=== PATIENT | female | born 1965 | race Caucasian/White ===

== ENCOUNTER 2016-08-02 20:01 | Emergency (ER) | payer OTHER ==
[2016-08-02 20:13] VITALS: BP 133/72; PULSE 89; RESP 18; TEMP 98.4
--- NOTE | 2016-08-02 21:56 | CT ---
EXAMINATION TYPE: CT brain [facility] DATE OF EXAM: 08/02/2016 9:46 PM COMPARISON: NONE HISTORY: Patient complains of headache, nausea, and dizziness post fall with blow to posterior head. Patient denies neck pain at time of exam. CT DLP: 1475.4 mGycm Automated exposure control for dose reduction was used. TECHNIQUE: CT scan of the head and cervical spine are performed without contrast. FINDINGS: Ventricles and sulci appear normal. There is no mass effect nor midline shift. There is n o sign of intracranial hemorrhage. The calvarium is intact. There is straightening of the cervical spine. There is degenerative disc space narrowing at C4-5 C5-6 with spurring of the endplates. Posterior elements are intact. Skull base is intact. I see no fractu re. IMPRESSION: Negative CT scan of the brain. Spondylotic changes in the cervical spine with straightening. No fracture.
[2016-08-02] MEDS ORDERED: KETOROLAC 30 MG/ML 1 ML VIAL IVP STA (22:39)
[2016-08-02] MEDS ORDERED: DIAZEPAM 5 MG/ML 2 ML SYRINGE IVP STA (22:39)
--- NOTE | 2016-08-02 23:11 | ED ---
General Adult HPI - General Chief complaint: Head Injury Stated complaint: Fall. Head Injury Source: patient Mode of arrival: wheelchair Limitations: no limitations - History of Present Illness Initial comments: 51-year-old female presented for evaluation of headache and dizziness with posterior head laceration following fall from standing yesterday. She says that she was walking into her gradually going up a couple steps and lost her balance and fell backwards hitting the back of her head on hard concrete. She is unsure if there was loss of consciousness but denies being on any blood thinners. She was able to get up on her own and continue ambulating going about a day. This morning she woke up and had dizziness whenever turning her head abruptly. She denies any associated nausea or vomiting or change in vision. The laceration to the back of her head continued to lose although bleeding was controlled. - Related Data Home Medications Medication Instructions Recorded Confirmed Dextroamphetamine/Amphetamine 1 tab PO DAILY 08/02/16 08/02/16 [Adderall] Previous Rx's Medication Instructions Recorded Diazepam [Valium] 5 mg PO BID #6 tab 08/02/16 HYDROcodone/APAP 5-325MG [[place] 1 - 2 tab PO Q6HR PRN #14 tab 08/02/16 5-325] Ibuprofen [Motrin] 800 mg PO Q8HR PRN #20 tab 08/02/16 Sulfamethox-Tmp 800-160Mg [Bactrim 1 tab PO Q12HR #14 tab 08/02/16 DS 800-160 mg] Allergies Allergy/AdvReac Type Severity Reaction Status Date / Time diphenhydramine Allergy Anaphylaxis Verified 08/02/16 20:14 [From Benadryl] egg Allergy Rash/Hives Verified 08/02/16 20:14 Penicillins Allergy Rash/Hives Verified 08/02/16 20:14 prednisone Allergy Swelling Verified 08/02/16 20:14 Review of Systems ROS Statement: Those systems with pertinent positive or pertinent negative responses have been documented in the HPI. ROS Other: All systems not noted in ROS Statement are negative. Constitutional: Denies: fever, chills Eyes: Denies: eye pain, eye discharge ENT: Denies: ear pain, throat pain Respiratory: Denies: cough, dyspnea Cardiovascular: Denies: chest pain, palpitations Endocrine: Denies: fatigue, polydipsia, polyuria Gastrointestinal: Denies: abdominal pain, nausea, vomiting Genitourinary: Denies: urgency, dysuria Musculoskeletal: Denies: back pain, myalgia Skin: Reports: lesions (Scalp laceration to posterior skull). Denies: rash, change in color Neurological: Reports: headache, other (Dizziness). Denies: numbness, paresthesias, confusion, abnormal gait, vertigo Psychiatric: Denies: anxiety, depression, auditory hallucinations, visual hallucinations Hematological/Lymphatic: Denies: easy bleeding, easy bruising Past Medical History Past Medical History: No Reported History History of Any Multi-Drug Resistant Organisms: None Reported Past Surgical History: Tonsillectomy Past Psychological History: Depression Smoking Status: Never smoker Past Alcohol Use History: Occasional Past Drug Use History: None Reported General Exam Limitations: no limitations General appearance: alert, in no apparent distress Head exam: Present: normocephalic, other (3 cm laceration to the posterior scalp. Clot noted within the laceration which is open but is not actively bleeding.). Absent: atraumatic Eye exam: Present: normal appearance, PERRL, EOMI. Absent: scleral icterus, conjunctival injection, periorbital swelling ENT exam: Present: normal exam, mucous membranes moist Neck exam: Present: tenderness, full ROM. Absent: meningismus, lymphadenopathy Respiratory exam: Present: normal lung sounds bilaterally. Absent: respiratory distress, wheezes, rales, rhonchi, stridor Cardiovascular Exam: Present: regular rate, normal rhythm, normal heart sounds. Absent: systolic murmur, diastolic murmur, rubs, gallop, clicks GI/Abdominal exam: Present: soft, normal bowel sounds. Absent: distended, tenderness, guarding, rebound, rigid Rectal exam: Present: deferred Extremities exam: Present: normal inspection, full ROM, normal capillary refill. Absent: tenderness, pedal edema, joint swelling, calf tenderness Back exam: Present: normal inspection. Absent: tenderness, CVA tenderness (R), CVA tenderness (L), muscle spasm Neurological exam: Present: alert, oriented X3, CN II-XII intact, normal gait, reflexes normal, other (No focal neurologic deficits with normal gait and station). Absent: altered, abnormal gait, motor sensory deficit Psychiatric exam: Present: normal affect, normal mood Skin exam: Present: warm, dry, normal color, other (Laceration to posterior scalp as noted above). Absent: rash Course Vital Signs 08/02/16 20:10 Temperature 98.4 F Pulse Rate 89 Respiratory 18 Rate Blood Pressure 133/72 O2 Sat by Pulse 98 Oximetry Medical Decision Making - Medical Decision Making 51-year-old female presenting for evaluation of headache and dizziness with following fall from standing yesterday. She presents just under 12 hours later with those symptoms as well as laceration to posterior scalp. On physical examination the patient has a normal neurologic exam with cranial nerves II through XII intact and no focal neurologic deficits. Normal gait and station. Obtained CT head which showed no acute intracranial process although there is decreased lordosis to the cervical spine which is likely due to increased muscle tone of the cervical paraspinal musculature. This is confirmed on palpitation. Patient provided with pain control and muscle relaxers and on reevaluation had marked improvement in symptoms. Concerning the laceration to the posterior scalp this was washed and explored with removal of clot resulting in bleeding. 4 alexis were placed over the laceration with cessation of bleeding. The patient has already had her tetanus updated at the urgent care prior to coming to this department. She was informed of all results and advised to follow-up with her primary care physician but advised to return to this facility if her symptoms should worsen or persist. The patient acknowledged an understanding of this information and agreed with this plan of care. Disposition Clinical Impression: Closed head injury, Scalp laceration Disposition: HOME SELF-CARE Condition: Stable Instructions: Head Injury (ED), Staple Care (ED) Additional Instructions: Please use medication as discussed. Please follow up with family doctor if symptoms have not improved over the next two days. Please return to the emergency room if your symptoms increase or worsen or for any other concerns. Prescriptions: Diazepam [Valium] 5 mg PO BID #6 tab HYDROcodone/APAP 5-325MG [[place] 5-325] 1 - 2 tab PO Q6HR PRN #14 tab PRN Reason: Analgesia Ibuprofen [Motrin] 800 mg PO Q8HR PRN #20 tab PRN Reason: Analgesia Sulfamethox-Tmp 800-160Mg [Bactrim DS 800-160 mg] 1 tab PO Q12HR #14 tab Time of Disposition: 23:03
[2016-08-02] MEDS ORDERED: DIAZEPAM 5 MG TAB PO STA (23:14)
[2016-08-02] MEDS ORDERED: HYDROcodone/APAP 10-325MG 1 EACH TAB PO ONE (23:14)
== END 2016-08-02 23:24 | disposition home or self-care (01) ==
LOC: EC 20:01
DX: S09.90XA Unspecified injury of head, initial encounter (principal); S01.01XA Laceration without foreign body of scalp, initial encounter; W10.9XXA Fall (on) (from) unspecified stairs and steps, initial encounter; Z79.899 Other long term (current) drug therapy; Z88.0 Allergy status to penicillin; Z88.8 Allergy status to other drugs, medicaments and biological substances; Z91.012 Allergy to eggs
CPT/HCPCS: 70450; 72125; 96374; 96375; 99283

== ENCOUNTER 2018-02-16 19:27 | Emergency (ER) | payer OTHER ==
[2018-02-16 20:12] VITALS: BP 117/74; PULSE 90; RESP 20; TEMP 98.8
[2018-02-16] MEDS ORDERED: ALBUTEROL NEBULIZED 2.5 MG/3 ML INHALATION STA (20:16)
--- NOTE | 2018-02-16 20:29 | ED ---
URI HPI - General Chief Complaint: Upper Respiratory Infection Stated Complaint: Congestion, SOB, Body aches Time Seen by Provider: 02/16/18 20:08 Source: patient, RN notes reviewed Mode of arrival: ambulatory Limitations: no limitations - History of Present Illness Initial Comments: This is a 52-year-old female with history of asthma who presents to the emergency department with chief complaint of cough and shortness of breath. Patient states that she has had a productive cough of green sputum for the past 2 days. She states that today while at work she felt short of breath. She states that she does have an albuterol inhaler but it is and has not used it. She states that prior to arrival she did take Mucinex and other over- the-counter medications. She states that for the past one week she has also had nasal congestion and right-sided facial pain. She denies any fevers or chills, chest pain, abdominal pain, nausea or vomiting, diarrhea. - Related Data Home Medications Medication Instructions Recorded Confirmed Dextroamphetamine/Amphetamine 1 tab PO DAILY 08/02/16 02/16/18 [Adderall] Previous Rx's Medication Instructions Recorded Diazepam [Valium] 5 mg PO BID #6 tab 08/02/16 HYDROcodone/APAP 5-325MG [[place] 1 - 2 tab PO Q6HR PRN #14 tab 08/02/16 5-325] Ibuprofen [Motrin] 800 mg PO Q8HR PRN #20 tab 08/02/16 Albuterol Inhaler [Ventolin Hfa 1 - 2 puff INHALATION RT-Q6H #1 02/16/18 Inhaler] inhaler Albuterol Nebulized [Ventolin 2.5 mg INHALATION Q6H #1 box 02/16/18 Nebulized] Allergies Allergy/AdvReac Type Severity Reaction Status Date / Time diphenhydramine Allergy Anaphylaxis Verified 02/16/18 20:12 [From Benadryl] egg Allergy Rash/Hives Verified 02/16/18 20:12 Penicillins Allergy Rash/Hives Verified 02/16/18 20:12 prednisone Allergy Swelling Verified 02/16/18 20:12 Review of Systems ROS Statement: Those systems with pertinent positive or pertinent negative responses have been documented in the HPI. ROS Other: All systems not noted in ROS Statement are negative. Past Medical History Past Medical History: Asthma, Fibromyalgia Additional Past Medical History / Comment(s): hashimotos, narcolepsy History of Any Multi-Drug Resistant Organisms: None Reported Past Surgical History: Tonsillectomy Additional Past Surgical History / Comment(s): D&C Past Psychological History: Depression Smoking Status: Never smoker Past Alcohol Use History: Occasional Past Drug Use History: None Reported General Exam - General Exam Comments Initial Comments: General: Awake and alert, well-developed; in no apparent distress. Voice is hoarse. HEENT: Head atraumatic, normocephalic. Pupils are equal, round and reactive to light. Extraocular movements intact. Oropharynx moist without erythema or exudate. Neck: Supple. Normal ROM. Cardiovascular: Regular rate and rhythm. No murmurs, rubs or gallops. Chest symmetrical. Respiratory: Normal respiratory effort with no use of accessory muscles. Mild wheezes right lung base. No rales or rhonchi. Musculoskeletal: Normal ROM, no tenderness bilateral upper and lower extremities. Ambulating normally. Skin: [place], warm and dry without rashes or lesions. Neurological: Alert and oriented x3. CN II-XII grossly intact. Speech is fluent and answers are appropriate. No focal neuro deficits. Psychiatric: Normal mood and affect. No overt signs of depression or anxiety noted. Limitations: no limitations Course Vital Signs 02/16/18 02/16/18 20:08 20:13 Temperature 98.8 F Pulse Rate 90 Respiratory 20 20 Rate Blood Pressure 117/74 O2 Sat by Pulse 97 Oximetry Medical Decision Making - Medical Decision Making This is a 52-year-old female with history of asthma who presents to the emergency department with chief complaint of cough. She has had a productive cough for the past 2 days. She states she became short of breath today. Patient's vital signs are stable and she is 97% on room air. Patient did receive an albuterol nebulizer treatment while in the emergency department. Chest x-ray revealed no acute abnormalities. Discussed starting patient on a short course of steroids and refilling her albuterol inhaler and nebulizer treatments. Patient reports an ALLERGY to Medrol Dosepak. Patient's albuterol and nebulizer treatments will be refilled. Vital signs are stable and patient is in no acute distress. She will be discharged home at this time. She is in agreement with plan and voices understanding. All questions were answered. - Radiology Data Radiology results: report reviewed Chest x-ray findings: The heart and mediastinum are normal. Lungs are clear of consolidation. There is no pleural effusion. Bony thorax is intact. There is minimal pleural thickening at the right lung apex. Impression: No active cardiopulmonary disease. Normal heart. Disposition Clinical Impression: Bronchitis Disposition: HOME SELF-CARE Condition: Good Instructions: Acute Bronchitis (ED) Additional Instructions: Please take medications as prescribed. Please follow up with primary care provider within 1-2 days. Return to emergency department if symptoms should worsen or any concerns arise. Prescriptions: Albuterol Inhaler [Ventolin Hfa Inhaler] 1 - 2 puff INHALATION RT-Q6H #1 inhaler Albuterol Nebulized [Ventolin Nebulized] 2.5 mg INHALATION Q6H #1 box Is patient prescribed a controlled substance at d/c from ED?: No Referrals: Antonio Wang MD [Primary Care Provider] - 1-2 days Time of Disposition: 20:45
--- NOTE | 2018-02-16 20:35 | XR ---
EXAMINATION TYPE: XR chest 2V DATE OF EXAM: 02/16/2018 COMPARISON: NONE HISTORY: Cough TECHNIQUE: Frontal and lateral views of the chest are obtained. FINDINGS: Heart and mediastinum are normal. Lungs are clear of consolidation. There is no pleural ef fusion. Bony thorax is intact. There is minimal pleural thickening at the right lung apex. IMPRESSION: No active cardiopulmonary disease. Normal heart.
== END 2018-02-16 21:10 | disposition home or self-care (01) ==
LOC: EC 19:27
DX: J45.909 Unspecified asthma, uncomplicated (principal); Z79.899 Other long term (current) drug therapy; Z88.0 Allergy status to penicillin; Z88.8 Allergy status to other drugs, medicaments and biological substances; Z91.012 Allergy to eggs
CPT/HCPCS: 71046; 94640; 99285

== ENCOUNTER 2018-03-31 19:26 | Emergency (ER) | payer OTHER ==
[2018-03-31 19:40] VITALS: BP 103/65; PULSE 76; RESP 20; TEMP 98.4
--- NOTE | 2018-03-31 20:26 | XR ---
EXAMINATION TYPE: XR ribs RT DATE OF EXAM: 03/31/2018 COMPARISON: NONE HISTORY: Rib pain TECHNIQUE: 4 views FINDINGS: I see no pleural effusion or pneumothorax. Right lung is clear of infiltrate. There is no e vidence of a rib fracture. IMPRESSION: Negative right rib exam.
--- NOTE | 2018-03-31 20:27 | XR ---
EXAMINATION TYPE: XR chest 2V DATE OF EXAM: 03/31/2018 COMPARISON: 02/16/2018 HISTORY: Cough and congestion TECHNIQUE: Frontal and lateral views of the chest are obtained. FINDINGS: Heart and mediastinum are normal. Lungs are clear. Diaphragm is normal. Pulmonary vascular ity is normal. Bony thorax is intact. There is mild pleural thickening at the right lung apex. IMPRESSION: Mild pleural scarring. No active cardiopulmonary disease. Normal heart. No change. No pn eumothorax.
[2018-03-31] MEDS ORDERED: KETOROLAC 30 MG/ML 1 ML VIAL IM STA (20:37)
--- NOTE | 2018-03-31 21:08 | ED ---
URI HPI - General Chief Complaint: Upper Respiratory Infection Stated Complaint: Rib pain Time Seen by Provider: 03/31/18 19:44 Source: patient Mode of arrival: ambulatory Limitations: no limitations - History of Present Illness Initial Comments: 52-year-old female coming in with chief complaint of right rib pain following cough. Patient states that she had a cough for weeks, she states she was seen here and diagnosed with a viral bronchitis. Patient states that the past week she has had sinus pressure however she denies trauma, fever, chills, nausea, vomiting, diarrhea, abdominal pain, sore throat, ear pain, purulent sputum production or any other complaints. Patient states that today she coughed while in the car driving, she noticed sharp pain in the right lateral ribs. She states the area is tender to palpation and increases with deep inspiration. Remainder of ROS negative, patient denies any chest pain, shortness of breath , dyspnea on exertion or any other associated symptoms. Upon arrival pt VS are stable, she is afebrile. Pt is well appearing, nontoxic. No signs of respiratory distress. No protective posturing or splinting of breathing noted. - Related Data Home Medications Medication Instructions Recorded Confirmed Dextroamphetamine/Amphetamine 1 tab PO DAILY 08/02/16 03/31/18 [Adderall] Previous Rx's Medication Instructions Recorded Diazepam [Valium] 5 mg PO BID #6 tab 08/02/16 HYDROcodone/APAP 5-325MG [[place] 1 - 2 tab PO Q6HR PRN #14 tab 08/02/16 5-325] Ibuprofen [Motrin] 800 mg PO Q8HR PRN #20 tab 08/02/16 Albuterol Inhaler [Ventolin Hfa 1 - 2 puff INHALATION RT-Q6H #1 02/16/18 Inhaler] inhaler Albuterol Nebulized [Ventolin 2.5 mg INHALATION Q6H #1 box 02/16/18 Nebulized] Benzonatate [Tessalon Perles] 100 mg PO TID PRN 4 Days #12 03/31/18 capsule Doxycycline [Vibramycin] 100 mg PO BID 7 Days #14 cap 03/31/18 Allergies Allergy/AdvReac Type Severity Reaction Status Date / Time diphenhydramine Allergy Anaphylaxis Verified 03/31/18 19:39 [From Benadryl] egg Allergy Rash/Hives Verified 03/31/18 19:39 Penicillins Allergy Rash/Hives Verified 03/31/18 19:39 prednisone Allergy Swelling Verified 03/31/18 19:39 Review of Systems ROS Statement: Those systems with pertinent positive or pertinent negative responses have been documented in the HPI. ROS Other: All systems not noted in ROS Statement are negative. Constitutional: Denies: fever, chills, night sweats ENT: Reports: as per HPI (sinus pressure right>left). Denies: ear pain, throat pain Respiratory: Reports: cough. Denies: dyspnea, wheezes, hemoptysis, stridor Cardiovascular: Denies: chest pain, palpitations, dyspnea on exertion Endocrine: Denies: fatigue Gastrointestinal: Denies: abdominal pain, nausea, vomiting, diarrhea, constipation, hematemesis, melena, hematochezia Genitourinary: Denies: urgency, dysuria, frequency Musculoskeletal: Reports: as per HPI (right sided rib pain) Skin: Denies: rash Neurological: Denies: headache, weakness, numbness, paresthesias, confusion, abnormal gait Past Medical History Past Medical History: Asthma, Fibromyalgia Additional Past Medical History / Comment(s): hashimotos, narcolepsy History of Any Multi-Drug Resistant Organisms: None Reported Past Surgical History: Tonsillectomy Additional Past Surgical History / Comment(s): D&C Past Psychological History: Depression Smoking Status: Never smoker Past Alcohol Use History: Occasional Past Drug Use History: None Reported General Exam - General Exam Comments Initial Comments: General: The patient is awake and alert, in no distress, and does not appear acutely ill. Eye: Pupils are equal, round and reactive to light, extra-ocular movements are intact. No nystagmus. There is normal conjunctiva bilaterally. No signs of icterus. Ears, nose, mouth and throat: There are moist mucous membranes and no oral lesions. Pharynx is not erythematous, there is no tonsillar enlargement or lesions. Uvula is midline. Tympanic membranes are within normal limits bilaterally, there is no erythema, bulging or retractions. No pain to palpation of the mastoid. Patient does admit to sinus pressure of the maxillary sinuses bilaterally. With right greater than the left. Neck: The neck is supple, there is no tenderness or JVD. Cardiovascular: There is a regular rate and rhythm. No murmur, rub or gallop is appreciated. Respiratory: Lungs are clear to auscultation, respirations are non-labored, breath sounds are equal. No wheezes, stridor, rales, or rhonchi. No splinting or protective posturing. No retractions, no signs of respiratory distress. Breath sounds are audible in all lung macias Gastrointestinal: Soft, non-distended, non-tender abdomen without masses or organomegaly noted. There is no rebound or guarding present. Musculoskeletal: Palpation over the right lateral posterior rib , no ecchymosis or swelling noted. Normal ROM, no tenderness. Strength 5/5. Sensation intact. Radial pulses equal bilaterally 2+. Neurological: A&O x 3. CN II-XII intact, There are no obvious motor or sensory deficits. Coordination appears grossly intact. Speech is normal. Skin: Skin is warm and dry and no rashes or lesions are noted. Psychiatric: Cooperative, appropriate mood & affect, normal judgment. Limitations: no limitations Course Vital Signs 03/31/18 03/31/18 19:36 19:49 Temperature 98.4 F Pulse Rate 76 Respiratory 20 20 Rate Blood Pressure 103/65 O2 Sat by Pulse 98 Oximetry Medical Decision Making - Medical Decision Making CXR (-). Rib XR (-). Point tenderness on exam.No splinting noted, no respiratory distress. I feel pain mostly likel due to intercostal muscle strain. VS stable. Pt admitted to maxillary sinus pressure on exam. Pt given RX for doxycycline for sinusitis. Pt has albuterol inhaler at home and was given Tessalon Perles for cough management. Patient is instructed to follow-up with primary care provider 1 to 2 days. Patient is agreeable to plan. At this time feel patient is stable for discharge. Case discussed with Dr. Mcgrath who agreed with impression and plan. Return parameters discussed at length with patient prior to discharge, she is agreeable. Patient states that she is ready for discharge. Denies questions at this time.Pt discharged in stable condition. Disposition Clinical Impression: Bronchitis, Sinusitis, Rib pain on right side Disposition: HOME SELF-CARE Condition: Good Instructions: Sinusitis (ED) Additional Instructions: Please use medication as discussed. Please follow-up with family doctor in the next 2 days. Please return to emergency room if the symptoms increase or worsen or for any other concerns. Prescriptions: Benzonatate [Tessalon Perles] 100 mg PO TID PRN 4 Days #12 capsule PRN Reason: Cough Doxycycline [Vibramycin] 100 mg PO BID 7 Days #14 cap Is patient prescribed a controlled substance at d/c from ED?: No Referrals: Antonio Wang MD [Primary Care Provider] - 1-2 days Time of Disposition: 21:07
== END 2018-03-31 21:22 | disposition home or self-care (01) ==
LOC: EC 19:26
DX: J32.0 Chronic maxillary sinusitis (principal); J40 Bronchitis, not specified as acute or chronic; R07.81 Pleurodynia; G47.419 Narcolepsy without cataplexy; Z79.899 Other long term (current) drug therapy; Z88.0 Allergy status to penicillin; Z88.8 Allergy status to other drugs, medicaments and biological substances; Z91.012 Allergy to eggs
CPT/HCPCS: 71100; 71046; 99283; 96372; J1885

== ENCOUNTER 2018-06-25 07:27 | Emergency (ER) | payer OTHER ==
[2018-06-25 07:35] VITALS: RESP 18
--- NOTE | 2018-06-25 08:04 | ED ---
Upper Extremity HPI - General Chief Complaint: Extremity Injury, Upper Stated Complaint: IHS - finger injury Time Seen by Provider: 06/25/18 07:40 Source: patient Mode of arrival: ambulatory - History of Present Illness Initial Comments: This is a 53-year-old female who had a prior injury to her right fifth finger states she got it pinched between 2. Very Last night between 11:12 PM. States she's been having persistent pain all night she denies any other injuries she came in for evaluation due to the pain. She states her right PIP joint area is more tender and swollen usual. She states now has a slight bend in the finger from previous injury. MD Complaint: Injury to:: right, finger - Related Data Home Medications Medication Instructions Recorded Confirmed Dextroamphetamine/Amphetamine 1 tab PO DAILY 08/02/16 03/31/18 [Adderall] Previous Rx's Medication Instructions Recorded Diazepam [Valium] 5 mg PO BID #6 tab 08/02/16 HYDROcodone/APAP 5-325MG [[place] 1 - 2 tab PO Q6HR PRN #14 tab 08/02/16 5-325] Ibuprofen [Motrin] 800 mg PO Q8HR PRN #20 tab 08/02/16 Albuterol Inhaler [Ventolin Hfa 1 - 2 puff INHALATION RT-Q6H #1 02/16/18 Inhaler] inhaler Albuterol Nebulized [Ventolin 2.5 mg INHALATION Q6H #1 box 02/16/18 Nebulized] Benzonatate [Tessalon Perles] 100 mg PO TID PRN 4 Days #12 03/31/18 capsule Doxycycline [Vibramycin] 100 mg PO BID 7 Days #14 cap 03/31/18 Ibuprofen 800 mg PO Q6HR PRN #20 tablet 06/25/18 Allergies Allergy/AdvReac Type Severity Reaction Status Date / Time diphenhydramine Allergy Anaphylaxis Verified 03/31/18 19:39 [From Benadryl] egg Allergy Rash/Hives Verified 03/31/18 19:39 Penicillins Allergy Rash/Hives Verified 03/31/18 19:39 prednisone Allergy Swelling Verified 03/31/18 19:39 Review of Systems ROS Statement: Those systems with pertinent positive or pertinent negative responses have been documented in the HPI. ROS Other: All systems not noted in ROS Statement are negative. Past Medical History Past Medical History: Asthma, Fibromyalgia Additional Past Medical History / Comment(s): hashimotos, narcolepsy History of Any Multi-Drug Resistant Organisms: None Reported Past Surgical History: Tonsillectomy Additional Past Surgical History / Comment(s): D&C Past Psychological History: Depression Smoking Status: Never smoker Past Alcohol Use History: Occasional Past Drug Use History: None Reported General Exam - General Exam Comments Initial Comments: This is a well-developed well-nourished awake alert oriented 3 female who does demonstrate a [place] Coma Scale of 15 General appearance: alert, in no apparent distress Head exam: Present: atraumatic, normocephalic, normal inspection Eye exam: Present: normal appearance, PERRL, EOMI. Absent: scleral icterus, conjunctival injection, periorbital swelling ENT exam: Present: normal exam, mucous membranes moist Neck exam: Present: normal inspection Extremities exam: Present: tenderness, normal capillary refill, other (Tennis palpation of the fifth metacarpal phalangeal joint and fifth PIP joints of the upper extremity. No obvious deformity however except for that mentioned already from previous injury no QRS or deficit). Absent: full ROM Back exam: Present: normal inspection, full ROM Neurological exam: Present: alert, oriented X3, CN II-XII intact Psychiatric exam: Present: normal affect, normal mood Skin exam: Present: warm, dry, intact, normal color. Absent: rash Course Vital Signs 06/25/18 07:31 Temperature 97.8 F Pulse Rate 74 Respiratory 18 Rate Blood Pressure 124/77 O2 Sat by Pulse 99 Oximetry Medical Decision Making - Medical Decision Making I did discuss findings with the patient she'll be placed in finger splint she was given oral pain medication to be discharged with appropriate prescription and orthopedic follow-up. - Radiology Data Radiology results: report reviewed (I did review the imaging and report or is evidence of old fracture with possible new fracture seen to the PIP joint of the right fifth finger. Please see complete report), image reviewed Disposition Clinical Impression: Finger fracture, right Disposition: HOME SELF-CARE Condition: Good Instructions (If sedation given, give patient instructions): Finger Fracture ( ED) Prescriptions: Ibuprofen 800 mg PO Q6HR PRN #20 tablet PRN Reason: Pain Is patient prescribed a controlled substance at d/c from ED?: No Referrals: Antonio Wang MD [Primary Care Provider] - 1-2 days Jagdeep Gonzalez DO [Doctor of Osteopathic Medicine] - 1-2 days
--- NOTE | 2018-06-25 08:42 | XR ---
EXAMINATION TYPE: XR finger RT DATE OF EXAM: 06/25/2018 COMPARISON: NONE HISTORY: 53-year-old female crushed fifth digit, pain and swelling. TECHNIQUE: 3 views coned-down right fifth finger FINDINGS: No subluxation or dislocation. There is some poorly defined lucency along the ulnar aspect of the fif th proximal phalangeal head. Mild degenerative spurring here. No displaced fracture seen. IMPRESSION: Some ill-defined lucency at the ulnar aspect of the fifth proximal phalangeal head. Given some degene rative spurring at the PIP joint, findings could represent a subchondral geode. Subtle nondisplaced f racture is difficult to entirely exclude. No other displaced fracture seen. Consider follow-up in 10- 14 days.
[2018-06-25] MEDS ORDERED: IBUPROFEN 800 MG TAB PO STA (08:58)
[2018-06-25 09:26] VITALS: BP 113/78; PULSE 77; TEMP 97.9
== END 2018-06-25 09:13 | disposition home or self-care (01) ==
LOC: EC 07:27
DX: S62.606A Fracture of unspecified phalanx of right little finger, initial encounter for closed fracture (principal); Z79.899 Other long term (current) drug therapy; Z88.8 Allergy status to other drugs, medicaments and biological substances; Z91.012 Allergy to eggs; Z88.0 Allergy status to penicillin; W23.1XXA Caught, crushed, jammed, or pinched between stationary objects, initial encounter; Y92.69 Other specified industrial and construction area as the place of occurrence of the external cause; Y99.0 Civilian activity done for income or pay
CPT/HCPCS: 99283

== ENCOUNTER 2021-10-06 03:43 | Emergency (ER) | payer OTHER ==
[2021-10-06 03:47] VITALS: BP 110/62; PULSE 75; RESP 19; TEMP 98
[2021-10-06] MEDS ORDERED: HYDROmorphone 1 MG/ML 1 ML SYRINGE IM STA (04:06)
[2021-10-06] MEDS ORDERED: diazePAM 5 MG TAB PO STA (04:06)
[2021-10-06] MEDS ORDERED: ETODOLAC 400 MG TAB PO STA (04:06)
--- NOTE | 2021-10-06 04:07 | ED ---
Neck Injury/Pain HPI - General Chief Complaint: Neck Pain/Injury Stated Complaint: neck pain Time Seen by Provider: 10/06/21 03:52 Source: RN notes reviewed, old records reviewed Mode of arrival: ambulatory Limitations: no limitations - History of Present Illness Initial Comments: This is a 56-year-old female to the emergency department for evaluation she presents today for evaluation of neck pain patient states he been doing with the neck pain for a few days to the progressively seemed worse from neck is tilted having difficulty moving it in any direction. Patient has no triadic injury to the neck no numbness and tingling down arms legs or any other neurological complaint. Patient has no new complaints MD Complaint: neck pain, other (Neck muscle spasm and tightness) -: hour(s) Place: home Radiation: right lateral, left lateral Severity: severe Severity scale (1-10): 7 Quality: sharp, aching Consistency: constant Improves With: none Worsens With: none Context: other (Patient was mowing the lawn when this occurred) Associated Symptoms: none Treatments Prior to Arrival: none - Related Data Home Medications Medication Instructions Recorded Confirmed Dextroamphetamine/Amphetamine 1 tab PO DAILY 08/02/16 03/31/18 [Adderall] Previous Rx's Medication Instructions Recorded HYDROcodone/APAP 5-325MG [[place] 1 - 2 tab PO Q6HR PRN #14 tab 08/02/16 5-325] Ibuprofen [Motrin] 800 mg PO Q8HR PRN #20 tab 08/02/16 diazePAM [Valium] 5 mg PO BID #6 tab 08/02/16 Albuterol Inhaler (Mhu) [Ventolin 1 - 2 puff INHALATION RT-Q6H #1 02/16/18 Hfa Inhaler (Mhu)] inhaler Albuterol Nebulized [Ventolin 2.5 mg INHALATION Q6H #1 box 02/16/18 Nebulized] Benzonatate [Tessalon Perles] 100 mg PO TID PRN 4 Days #12 03/31/18 capsule Doxycycline [Vibramycin] 100 mg PO BID 7 Days #14 cap 03/31/18 Ibuprofen 800 mg PO Q6HR PRN #20 tablet 06/25/18 Allergies Allergy/AdvReac Type Severity Reaction Status Date / Time diphenhydramine Allergy Anaphylaxis Verified 10/06/21 03:47 [From Benadryl] egg Allergy Rash/Hives Verified 10/06/21 03:47 Penicillins Allergy Rash/Hives Verified 10/06/21 03:47 prednisone Allergy Swelling Verified 10/06/21 03:47 Review of Systems ROS Statement: Those systems with pertinent positive or pertinent negative responses have been documented in the HPI. ROS Other: All systems not noted in ROS Statement are negative. Past Medical History Past Medical History: Asthma, Fibromyalgia Additional Past Medical History / Comment(s): hashimotos, narcolepsy History of Any Multi-Drug Resistant Organisms: None Reported Past Surgical History: Tonsillectomy Additional Past Surgical History / Comment(s): D&C Past Psychological History: Depression Smoking Status: Never smoker Past Alcohol Use History: Occasional Past Drug Use History: None Reported General Exam General appearance: alert, in no apparent distress Head exam: Present: atraumatic, normocephalic, normal inspection, other (Patient does have torticollis type tilt to her head, muscle tenderness and tightness) Eye exam: Present: normal appearance, PERRL, EOMI. Absent: scleral icterus, conjunctival injection, periorbital swelling ENT exam: Present: normal exam, mucous membranes moist Neck exam: Present: normal inspection. Absent: tenderness, meningismus, lymphadenopathy Respiratory exam: Present: normal lung sounds bilaterally. Absent: respiratory distress, wheezes, rales, rhonchi, stridor Cardiovascular Exam: Present: regular rate, normal rhythm, normal heart sounds. Absent: systolic murmur, diastolic murmur, rubs, gallop, clicks GI/Abdominal exam: Present: soft, normal bowel sounds. Absent: distended, tenderness, guarding, rebound, rigid Extremities exam: Present: normal inspection, full ROM, normal capillary refill. Absent: tenderness, pedal edema, joint swelling, calf tenderness Back exam: Present: normal inspection Neurological exam: Present: alert, oriented X3, CN II-XII intact Psychiatric exam: Present: normal affect, normal mood Skin exam: Present: warm, dry, intact, normal color. Absent: rash Course Vital Signs 10/06/21 03:45 Temperature 98 F Pulse Rate 75 Respiratory 19 Rate Blood Pressure 110/62 O2 Sat by Pulse 100 Oximetry - Reevaluation(s) Reevaluation #1: 10/06/21 Medical record is reviewed Reevaluation #2: 10/06/21 Patient is taken through both active and passive range of motion techniques to try and reset her lucid neck muscles Reevaluation #3: 10/06/21 Patient symptoms are improved here in the ER Medical Decision Making - Medical Decision Making 56 female to the emergency department for acute torticollis type reaction. Patient is given exercises neck exercises both passive and active. Symptoms therapy and can be discharged Disposition Clinical Impression: Strain of neck muscle, Acute torticollis Disposition: HOME SELF-CARE Condition: Good Instructions (If sedation given, give patient instructions): Cervical Strain (ED), Cervical Sprain (ED) Is patient prescribed a controlled substance at d/c from ED?: No Referrals: Antonio Wang MD [Primary Care Provider] - 1-2 days Time of Disposition: 05:55
== END 2021-10-06 06:06 | disposition home or self-care (01) ==
LOC: EC 03:43
DX: S16.1XXA Strain of muscle, fascia and tendon at neck level, initial encounter (principal); M43.6 Torticollis; J45.909 Unspecified asthma, uncomplicated; M79.7 Fibromyalgia; F32.A Depression, unspecified; Z79.51 Long term (current) use of inhaled steroids; Z79.899 Other long term (current) drug therapy; X58.XXXA Exposure to other specified factors, initial encounter; Y92.009 Unspecified place in unspecified non-institutional (private) residence as the place of occurrence of the external cause
CPT/HCPCS: 99283; 96372; J1170

== ENCOUNTER → 2021-11-24 | Outpatient (CLI) | payer OTHER | END | disposition home or self-care (01) | LOC: LABWHC1 12:11 | PROVIDERS: ATTEND Psychiatry & Neurology Neurology | DX: I49.9 Cardiac arrhythmia, unspecified (principal) | CPT/HCPCS: 36415; 93005 ==

== ENCOUNTER → 2023-03-31 | Outpatient (CLI) | payer OTHER ==
--- NOTE | 2023-03-31 15:39 | BD ---
EXAMINATION TYPE: Axial Bone Density DATE OF EXAM: 03/31/2023 CLINICAL HISTORY: 57 years old Female. ICD-10 CODE: Z78.0 MENOPAUSE PRESENT Height: 66" Weight: 150.6lbs FRAX RISK QUESTIONS: Alcohol (3 or more units per day): No Family History (Parent hip fracture): No Glucocorticoids (More than 3mos): No (Ex: prednisone, prednisolone, methylprednisolone, dexamethasone, and hydrocortisone). History of Fracture in Adulthood: No Secondary Osteoporosis: 1. Type 1 Diabetes: No 2. Hyperthyroidism: No 3. Menopause before 45: 51 4. Malnutrition: No 5. Chronic liver disease: No Rheumatoid Arthritis: No Current Tobacco Use: Yes RISK FACTORS HISTORY OF: Hip Fracture (Right/Left): No Spine Fracture: No History of Wrist Fracture: No Surgery to Spine/Hip(right/left)/Wrist (right/left): No Family History of Osteoporosis: Yes, mother Active: Yes Diet low in dairy products/other sources of calcium: Yes Postmenopausal woman: Yes Lost more than 2 inches in height since high school: Yes Frequent falls: No Poor Health: No Hyperparathyroidism: No Adrenal Insufficiency: No MEDICATIONS: Prednisone or other steroids: No Thyroid Medications: No Osteoporosis Medications: No Additional Medications: Reflux medication Additional History: None EXAM MEASUREMENTS: Bone mineral densitometry was performed using the [employer] System. Bone mineral density as measured about the Lumbar spine is: ----- L1-L4(G/cm2): 1.043 T Score Values are as follows: ----- L1: -1.6 ----- L2: -1.1 ----- L3: -1.0 ----- L4: -1.1 ----- L1-L4: -1.1 Z Score Values are as follows: ----- L1: -0.7 ----- L2: -0.3 ----- L3: -0.2 ----- L4: -0.2 ----- L1-L4: -.3 Baseline @MPH Bone mineral density about the R hip (g/cm2): 0.785 Bone mineral density about the L hip (g/cm2): 0.769 T Score values are as follows: -----R Neck: -0.9 -----L Neck: -1.3 -----R Total: -1.8 -----L Total: -1.9 Z Score values are as follows: -----R Neck: 0.1 -----L Neck: -0.3 -----R Total: -1.1 -----L Total: -1.2 Baseline @MPH FRAX%s: The graph provided illustrates a 6.7% chance for a major osteoporotic fx and a 0.8% chance fo r the hips probability for fx in 10 years time. IMPRESSION: Osteopenia (T Score between -2.5 and -1). There is slightly increased risk of fracture and the patient may be considered for treatment. Re-Screen 2-5 years. NOTE: T-SCORE=SD OF THE YOUNG ADULT MEAN.
--- NOTE | 2023-04-05 01:10 | MM ---
Reason for Exam: Screening (asymptomatic). Last mammogram was performed 7 year(s) and 9 month(s) ago. Patient History: Menarche at age 14. First Full-Term at age 21. Postmenopausal. Other cancer. Patient used Hormonal Contraceptives for 15 years. Maternal grandmother had breast cancer, age 86. Maternal cousin had breast cancer, age 40. Sister had breast cancer, age 37. Sister had breast cancer. Risk Values: Radha 5 year model risk: 5.0%. NCI Lifetime model risk: 28.9%. Prior Study Comparison: No prior studies available for comparison. Tissue Density: The breast tissue is heterogeneously dense. This may lower the sensitivity of mammography. Findings: Analyzed By CAD. There is no suspicious group of microcalcifications, significant mass, or other discrete abnormality seen in either breast. Overall Assessment: Negative, BI-RAD 1 Management: Screening Mammogram of both breasts in 1 year. SEE NOTE BELOW IN REGARDS TO PATIENT'S INCREASED 5 YEAR ARDHA SCORE AND INCREASED LIFETIME RISK SCORE. Patient should continue monthly self-breast exams. A clinical breast exam by your physician is recommended on an annual basis. This exam should not preclude additional follow-up of suspicious palpable abnormalities. Note on Radha scores and lifetime risk: 1. A Radha score greater than 3% is considered moderate risk. If this is the case, consider specialist referral to assess eligibility for a risk reducing agent. 2. If overall lifetime risk for the development of breast cancer is 20% or higher, the patient may qualify for future screening with alternating mammogram and breast MRI. Electronically signed and approved by: Yao Way M.D. Radiologist
== END | disposition home or self-care (01) ==
LOC: RADMAMWWP 10:55
PROVIDERS: ATTEND Family Medicine
DX: Z12.31 Encounter for screening mammogram for malignant neoplasm of breast (principal); M85.89 Other specified disorders of bone density and structure, multiple sites; Z78.0 Asymptomatic menopausal state; Z80.3 Family history of malignant neoplasm of breast
CPT/HCPCS: 77063; 77067; 77080

== ENCOUNTER → 2023-08-18 | Outpatient (CLI) | payer OTHER | END | disposition home or self-care (01) | LOC: LABWHC1 12:59 | PROVIDERS: ATTEND Psychiatry & Neurology Neurology | DX: I49.9 Cardiac arrhythmia, unspecified (principal) | CPT/HCPCS: 36415; 93005 ==

== ENCOUNTER → 2024-09-26 | Outpatient (CLI) | payer MEDICAID ==
--- NOTE | 2024-09-26 19:00 | CTL ---
EXAMINATION TYPE: CT Low Dose Lung DATE OF EXAM ORDERED: 09/26/2024 COMPARISON: Chest radiograph 03/31/2018 CLINICAL INDICATION: Female, 59 years old with history of Z12.2 SCRN FOR LUNG CANCER, Z87.891; PHH, P T QUIT SMOKING CIGARETTES 2+ YRS AGO, SMOKED FOR 25 YRS, CURRENTLY SMOKES MARIJUANA ONLY, Lung cancer screening, History of Smoking/tobacco use. TECHNIQUE: Low dose computed tomography scan was performed through the chest at 1 mm thick sections a nd reconstructed images in multiple planes at 1 mm and [address] DLP: 66.[address] CTDI: 1.8 mGy Automated exposure control for dose reduction was used. CT DIAGNOSTIC QUALITY: Satisfactory FINDINGS: Nodules: No clinically significant pulmonary nodule. LUNGS: COPD: Severity: Mild centrilobular and paraseptal emphysematous changes. Fibrosis: Severity: Mild subpleural pulmonary fibrotic reticular changes with apical predominance. Lymph nodes: None Other findings: None RIGHT PLEURAL SPACE: Effusion: None Calcification: None Thickening: None Pneumothorax: None LEFT PLEURAL SPACE: Effusion: None Calcification: None Thickening: None Pneumothorax: None HEART: Heart Size: Normal Coronary Calcification: None Pericardial Effusion: None OTHER FINDINGS: Upper abdomen: None Bony thorax: Mild multilevel degenerative disc disease. Supraclavicular region: None Other: None IMPRESSION: 1. No clinically significant pulmonary nodule. 2. Mild emphysematous and pulmonary fibrotic changes. CT LUNG RAD AND CT CHEST RECOMMENDATION: Lung-Rad 1 Negative: Continue annual screening with LDCT in 12 months. S Modifier (other clinically significant findings): None [facility], , 09/26/2024 6:58 PM
== END | disposition home or self-care (01) ==
LOC: RADCTMAIN 17:43
PROVIDERS: ATTEND Family Medicine
DX: Z12.2 Encounter for screening for malignant neoplasm of respiratory organs (principal); J43.2 Centrilobular emphysema; J84.10 Pulmonary fibrosis, unspecified; Z87.891 Personal history of nicotine dependence
CPT/HCPCS: 71271

== ENCOUNTER → 2024-10-24 | Outpatient (CLI) | payer MEDICAID ==
--- NOTE | 2024-10-24 14:07 | MM ---
Reason for Exam: Screening (asymptomatic). Last mammogram was performed 1 year(s) and 7 month(s) ago. Indicated Problems: Pain of the right side (Global) for 1 Week(s). Patient History: Menarche at age 14. First Full-Term at age 21. Postmenopausal. Patient has history of breast feeding. Other cancer. Patient used Hormonal Contraceptives for 15 years. Maternal grandmother had breast cancer, age 86. Maternal cousin had breast cancer, age 40. Sister had breast cancer, age 37. Sister had breast cancer. Risk Values: Radha 5 year model risk: 5.4%. NCI Lifetime model risk: 27.8%. Prior Study Comparison: 03/15/2012 Screening Mammogram, [facility]. 06/20/2015 Bilateral Screening Mammogram, [facility]. 03/31/2023 Bilateral MG 3D screening mammo w/cad, [facility]. Tissue Density: There are scattered areas of fibroglandular density. Findings: Analyzed By CAD. Skin marker indicating tenderness overlying the upper-outer quadrant of the right breast. There is no suspicious group of microcalcifications or new suspicious mass in either breast. Overall Assessment: Negative, BI-RAD 1 Management: Screening Mammogram of both breasts in 1 year. SEE NOTE BELOW IN REGARDS TO THE PATIENT'S INCREASED 5 YEAR RADHA SCORE AND INCREASED LIFETIME RISK SCORE. Further clinical management of patient's right breast pain. Patient should continue monthly self-breast exams. A clinical breast exam by your physician is recommended on an annual basis. This exam should not preclude additional follow-up of suspicious palpable abnormalities. Note on Radha scores and lifetime risk: 1. A Radha score greater than 3% is considered moderate risk. If this is the case, consider specialist referral to assess eligibility for a risk reducing agent. 2. If overall lifetime risk for the development of breast cancer is 20% or higher, the patient may qualify for future screening with alternating mammogram and breast MRI. [facility], , 10/24/2024 2:04 PM. Electronically signed and approved by: Yao Way M.D. Radiologist
== END | disposition home or self-care (01) ==
LOC: RADMAMWWP 12:01
PROVIDERS: ATTEND Psychiatry & Neurology Neurology
DX: Z12.31 Encounter for screening mammogram for malignant neoplasm of breast (principal); R92.323 Mammographic fibroglandular density, bilateral breasts; Z92.0 Personal history of contraception; Z80.3 Family history of malignant neoplasm of breast; Z78.0 Asymptomatic menopausal state
CPT/HCPCS: 77063; 77067